=== PATIENT | male | born 1985 | race Caucasian/White ===

== ENCOUNTER 2017-10-09 18:46 | Emergency (ER) | payer OTHER ==
[~2017-10-09] VITALS: Ht 162.6 cm; Wt 74.5 kg
[~2017-10-09 18:46] MED LIST: ATARAX,VISTARIL50 MG PO; BACTRIM,SEPT1 TABLET PO; FOLIC ACID1 MG GT; NOHOMEMEDS; VITAMIN B-1100 MG GT
[2017-10-09] MEDS ORDERED: MOTRIN600 MG PO (20:14)
[2017-10-09] MEDS ORDERED: ULTRACET1 TABLET PO (20:14)
[2017-10-09 21:11] VITALS: BP 139/94
== END 2017-10-09 21:12 | disposition home or self-care (01) ==
LOC: EME 18:46
DX: S50.12XA Contusion of left forearm, initial encounter (principal); W23.0XXA Caught, crushed, jammed, or pinched between moving objects, initial encounter; F32.9 Major depressive disorder, single episode, unspecified
CPT/HCPCS: 73090; 99281; 99284